=== PATIENT | male | born 1955 | race Caucasian/White ===

== ENCOUNTER 2020-08-27 08:30 | Outpatient (CLI) | payer BC, SELFPAY | END 2020-08-27 08:31 | disposition home or self-care (01) | LOC: ANHCOVIDVC 08:30 | PROVIDERS: PCP Internal Medicine | DX: Z23 Encounter for immunization (principal) | CPT/HCPCS: 0001A; 91300 ==

== ENCOUNTER 2020-09-17 08:32 | Outpatient (CLI) | payer BC, SELFPAY | END 2020-09-17 08:33 | disposition home or self-care (01) | LOC: ANHCOVIDVC 08:32 | PROVIDERS: PCP Internal Medicine | DX: Z23 Encounter for immunization (principal) | CPT/HCPCS: 0002A; 91300 ==

== ENCOUNTER 2021-01-07 10:01 | Emergency (ER) | payer BC, SELFPAY ==
[2021-01-07 10:13] VITALS: BP 156/85; PULSE 62; RESP 18; TEMP 36.7; O2SAT 99
--- NOTE | 2021-01-07 10:15 | ED.GENADULT ---
HPI - General Adult General Chief complaint: Skin/Abscess/Foreign Body Stated complaint: insect bite Time Seen by Provider: 01/07/21 10:15 Source: patient and RN notes reviewed Mode of arrival: ambulatory Limitations: no limitations History of Present Illness HPI narrative: 65-year-old male presents with complaints of red and itchy rash to back of left lower leg for the past 2 days. Getachew reports no change in area over the past 24 hours. Benadryl cream to area with little to no improvement. Believes he might have been bite by a spider on Thursday01/05/2021. Denies new detergent, personal hygiene products or laundry detergents. No new foods or medications. No swelling, burning, bleeding, or drainage. Denies fever, chills, headaches, weakness, fatigue, myalgia, facial swelling, or tongue swelling. Denies dyspnea or chest pain. Tolerating p.o. intake. Remains active. The patient reports he has not been diagnosed with COVID-19. The patient reports he received 2 Pfizer COVID-19 vaccines. The patient reports he is not waiting for the results of a COVID-19 lab test. The patient reports he does not have chills, weakness, or fatigue. The patient reports he does not have a new or worsening cough or shortness of breath. The patient reports he does not have any rhinorrhea, congestion, loss of taste or smell, sore throat, nausea, vomiting, abdominal pain, and diarrhea. Denies recent traveling. Denies concerns for COVID-19 or exposures. At this time, the patient is not suspected of having COVID-19. Some parts of this dictation were generated by voice recognition software and may contain typographical and/or grammatical inaccuracies. Related Data Home Medications Medication Instructions Recorded Confirmed bupropion HCl 300 mg 24 hr tablet, 300 mg PO QAM 05/30/19 01/07/21 extended release omeprazole 20 mg capsule,delayed 20 mg PO DAILY 05/30/19 01/07/21 release Allergies Allergy/AdvReac Type Severity Reaction Status Date / Time No Known Allergies Allergy Verified 01/07/21 10:05 Review of Systems Review of Systems: Narrative: CONSTITUTIONAL: Denies fever, chills, sweats. EYES: Denies visual changes, redness, discharge. ENT: Denies otalgia, rhinorrhea, congestion, sore throat. CARDIOVASCULAR: Denies chest pain, palpitations, edema. RESPIRATORY: Denies dyspnea, wheezing, cough. GASTROINTESTINAL: Denies abdominal pain, nausea, vomiting, diarrhea. GENITOURINARY: Denies dysuria, hematuria, abnormal discharge. SKIN: Complains of red and itching rash to back of LT lower leg. Denies drainage. MUSCULOSKELETAL: Denies acute back pain, joint pain, or myalgia. NEUROLOGIC: Denies numbness or focal weakness. PSYCHIATRIC: Denies anxiety or depression. All systems reviewed & are unremarkable except as noted in HPI and below. [facility] Past Medical History Medical History (Updated 01/14/21 @ 14:59 by TICO Manzano) Depression Essential (primary) hypertension Gastro-esophageal reflux disease without esophagitis Hx of malignant melanoma Pure hypercholesterolemia Schatzki's ring Surgical History Surgical History (Updated 01/07/21 @ 10:55 by TICO Manzano) History of esophagogastroduodenoscopy (EGD) History of surgical removal of lesion mole removal Family History Family History Mother Patient's mother is in good health Father Family history of malignant neoplasm Patient's father is Social History Social History (Updated 01/07/21 @ 10:56 by TICO Manzano) Smoking status: Never smoker Tobacco type: cigarettes Second hand tobacco smoke exposure: No Alcohol intake: current Substance use: never Substance use type: does not use Living arrangements: with family Occupation/Education: occupation Gender identity (if verbalized by the patient): Male Sexual Orientation (if Verbalized by the Patient
== END 2021-01-07 10:35 | disposition home or self-care (01) ==
PROVIDERS: Emergency Provider Nurse Practitioner Family; PCP Internal Medicine
DX: S80.862A Insect bite (nonvenomous), left lower leg, initial encounter (principal); W57.XXXA Bitten or stung by nonvenomous insect and other nonvenomous arthropods, initial encounter; F32.9 Major depressive disorder, single episode, unspecified; I10 Essential (primary) hypertension; K21.9 Gastro-esophageal reflux disease without esophagitis; E78.00 Pure hypercholesterolemia, unspecified; K22.2 Esophageal obstruction; Z85.820 Personal history of malignant melanoma of skin
CPT/HCPCS: 99213; G0463

== ENCOUNTER 2021-03-15 00:59 | Day surgery (SDC) | payer BC, SELFPAY ==
[2021-03-01 15:05] VITALS: BMI 26.4
[2021-03-15 09:21] VITALS: BP 139/87; PULSE 58; RESP 14; TEMP 36.1; O2SAT 100; BMI 23.6
--- NOTE | 2021-03-15 09:27 | WPDGICN ---
Assessment and Plan Assessment and plan (1) Encounter for screening colonoscopy: Code(s): Z12.11 - Encounter for screening for malignant neoplasm of colon Status: Acute Assessment and Plan: Screening colonoscopy for neoplasia screening is encouraged. Further recommendations will be given after colonoscopy. (2) GERD (gastroesophageal reflux disease): Code(s): K21.9 - Gastro-esophageal reflux disease without esophagitis Status: Acute Assessment and Plan: GE reflux stable on omeprazole 20mg p.o. daily. GI Consult Note Consult date/time: 03/15/21 09:27 HPI: Getachew Morales is a 65 year old male Presents for screening colonoscopy. Patient reports that his current weight appetite bowel movements are normal. Patient denies abdominal pain. He has had no bleeding. Family history is noncontributory. Patient gives a past history of acid reflux this is currently felt to be stable on current acid suppression medicines omeprazole 20mg p.o. daily he denies any dysphagia bleeding or weight loss. Review of Systems Review of Systems: All systems reviewed & are unremarkable except as noted in HPI and below PMFSH Past Medical History Medical History (Updated 03/15/21 @ 09:29 by Temo Garcia MD) Depression Essential (primary) hypertension Gastro-esophageal reflux disease without esophagitis Hx of malignant melanoma Pure hypercholesterolemia Schatzki's ring Surgical History Surgical History (Updated 01/07/21 @ 10:55 by TICO Manzano) History of esophagogastroduodenoscopy (EGD) History of surgical removal of lesion mole removal Family History Family History Mother Patient's mother is in good health Father Family history of malignant neoplasm Patient's father is Social History Social History (Updated 01/07/21 @ 10:56 by TICO Manzano) Smoking status: Never smoker Tobacco type: cigarettes Second hand tobacco smoke exposure: No Alcohol intake: current Substance use: never Substance use type: does not use Living arrangements: with family Gender identity (if verbalized by the patient): Male Sexual Orientation (if Verbalized by the Patient): Straight or Heterosexual Meds Home Medications and Allergies Home Medications Medication Instructions Recorded Confirmed Type bupropion HCl 300 mg 24 hr tablet, 300 mg PO QAM 05/30/19 03/15/21 History extended release omeprazole 20 mg capsule,delayed 20 mg PO DAILY 05/30/19 03/15/21 History release losartan 50 mg tablet 50 mg PO DAILY #90 tablet 12/14/20 03/15/21 Rx mupirocin 1 applic TOPICAL BID 5 Days #30 gm 01/07/21 03/15/21 Rx Allergies Allergy/AdvReac Type Severity Reaction Status Date / Time No Known Allergies Allergy Verified 03/15/21 09:21 Vital Signs Vital Signs - 24 hr 03/15/21 09:21 Temperature 96.9 F L Pulse Rate 58 L Respiratory Rate 14 Blood Pressure 139/87 Pulse Oximetry 100 Exam Narrative: Physical exam reveals patient to be alert. Vital signs stable. HEENT exam is unremarkable. Patient is anicteric. Lungs are clear to auscultation and percussion. Heart is without murmur or extra sounds. Abdominal exam bowel sounds present soft nontender with no organomegaly. Digital external rectal exam is normal.
[2021-03-15] MEDS: LACTATED RINGERS 1,000 ML 150 ML IV CONT (09:32)
--- NOTE | 2021-03-15 09:47 | WPDANESEPPF ---
Anes - Initial Pre Proc Eval Procedure: Operation Date: 03/15/21 10:00 Proposed Procedures p Screening Colonoscopy - Temo Garcia MD Date/Time: 03/15/21 09:47 Surgeon: Temo Garcia MD Pre Op Diagnosis: neoplasm screening Z12.11 Patient Data Age: 65 Gender: M Height: 1.85 m Weight: 81.3 kg Last Vital Signs Temp 96.9 F L 03/15/21 09:21 Pulse 58 L 03/15/21 09:21 Resp 14 03/15/21 09:21 BP 139/87 03/15/21 09:21 Pulse Ox 100 03/15/21 09:21 Allergies Allergy/AdvReac Type Severity Reaction Status Date / Time No Known Allergies Allergy Verified 03/15/21 09:21 Home Medications Medication Instructions Recorded Confirmed Type bupropion HCl 300 mg 24 hr tablet, 300 mg PO QAM 05/30/19 03/15/21 History extended release omeprazole 20 mg capsule,delayed 20 mg PO DAILY 05/30/19 03/15/21 History release losartan 50 mg tablet 50 mg PO DAILY #90 tablet 12/14/20 03/15/21 Rx mupirocin 1 applic TOPICAL BID 5 Days #30 gm 01/07/21 03/15/21 Rx Patient hx anesthesia problems: none Family hx anesthesia problems: none Results Review: All pre-operative results and documents have been reviewed as part of the pre-operative evaluation. [facility] Past Medical History Medical History (Updated 03/15/21 @ 09:29 by Temo Garcia MD) Depression Essential (primary) hypertension Gastro-esophageal reflux disease without esophagitis Hx of malignant melanoma Pure hypercholesterolemia Schatzki's ring Surgical History Surgical History (Updated 01/07/21 @ 10:55 by TICO Manzano) History of esophagogastroduodenoscopy (EGD) History of surgical removal of lesion mole removal Family History Family History Mother Patient's mother is in good health Father Family history of malignant neoplasm Patient's father is Social History Social History (Updated 01/07/21 @ 10:56 by TICO Manzano) Smoking status: Never smoker Tobacco type: cigarettes Second hand tobacco smoke exposure: No Alcohol intake: current Substance use: never Substance use type: does not use Living arrangements: with family Gender identity (if verbalized by the patient): Male Sexual Orientation (if Verbalized by the Patient): Straight or Heterosexual Anes - Eval Final PreProcedure Day of Procedure 03/15/21 09:47 Patient weight: overweight Heart: regular rate and rhythm Lungs: clear to auscultation Airway: Mallampati scale class II Neurological: alert and oriented Last oral intake: >/= 8 hours ASA classification: II Emergent: no Anesthetic plan: proceed Anesthesia type and monitoring: general GIVS and standard monitoring Results Review: All pre-operative results and documents have been reviewed as part of the pre-operative evaluation. Informed Consent: The patient's anesthetic plan and its attendant risks and benefits were discussed with the patient/family/POA. Questions were solicited and answers provided to the satisfaction of the patient/family/POA.
[2021-03-15 10:22] VITALS: BP 103/58; PULSE 58; RESP 13; O2SAT 99
[2021-03-15 10:32] VITALS: BP 125/70; PULSE 51; RESP 21; O2SAT 100
[2021-03-15 10:42] VITALS: BP 132/64; PULSE 53; RESP 14; O2SAT 100
== END 2021-03-15 10:56 | disposition home or self-care (01) ==
PROVIDERS: PCP Internal Medicine; Visit Provider Internal Medicine Gastroenterology
PROC: 0DJD8ZZ Inspection of Lower Intestinal Tract, Via Natural or Artificial Opening Endoscopic (ICD-10-PCS; CPT 45378; principal; 2021-03-15 10:00)
DX: Z12.11 Encounter for screening for malignant neoplasm of colon (principal); D12.2 Benign neoplasm of ascending colon; D12.5 Benign neoplasm of sigmoid colon; K63.5 Polyp of colon; K64.8 Other hemorrhoids; K57.30 Diverticulosis of large intestine without perforation or abscess without bleeding; K21.9 Gastro-esophageal reflux disease without esophagitis; I10 Essential (primary) hypertension; E78.00 Pure hypercholesterolemia, unspecified; F32.9 Major depressive disorder, single episode, unspecified; Z85.820 Personal history of malignant melanoma of skin
CPT/HCPCS: 45385; 88305; J2001; J2704; J7120

== ENCOUNTER 2023-01-02 11:46 | Emergency (ER) | payer BC, SELFPAY ==
[2023-01-02 11:53] VITALS: BP 156/85; PULSE 69; RESP 16; TEMP 36.7; O2SAT 96
--- NOTE | 2023-01-02 12:34 | ED.SKABFB ---
HPI - Skin/Abscess/Foreign Bdy General Chief complaint: Skin/Abscess/Foreign Body Stated complaint: Insect Bite Rt Side Time Seen by Provider: 01/02/23 12:25 Source: patient, family () and RN notes reviewed Mode of arrival: ambulatory Limitations: no limitations History of Present Illness HPI narrative: Patient presents today complaining of a tick bite to his right side that was noticed this morning and removed. He is unsure how long the tick has been in him as he states he has not been in the [place] or anywhere he believes he may have had contact. States he cannot narrow down a time frame in which he believes he may have gotten bit. He comes in today seeking prophylactic antibiotics. He denies any symptoms besides the tick bite itself. Related Data Home Medications Medication Instructions Recorded Confirmed bupropion HCl 300 mg 24 hr tablet, 300 mg PO QAM 05/30/19 01/02/23 extended release (Wellbutrin XL) omeprazole 20 mg capsule,delayed 20 mg PO DAILY 07/10/21 01/02/23 release Allergies Allergy/AdvReac Type Severity Reaction Status Date / Time No Known Allergies Allergy Verified 01/02/23 11:46 Review of Systems Review of Systems: CONSTITUTIONAL: Denies body aches, fever, chills, or sweats. EYES: Denies visual changes, redness, or discharge. ENT: Denies rhinorrhea, congestion, sore throat, or otalgia. CARDIOVASCULAR: Denies chest pain, palpitations, or edema. RESPIRATORY: Denies cough or dyspnea. GASTROINTESTINAL: Denies abdominal pain, nausea, vomiting, or diarrhea. GENITOURINARY: Denies dysuria or hematuria. SKIN: + tick bite MUSCULOSKELETAL: Denies back pain, joint pain, or myalgia. NEUROLOGIC: Denies headache, numbness, tingling, or weakness. PSYCH: Denies depression or anxiety. [facility] Past Medical History Medical History Depression Essential (primary) hypertension Gastro-esophageal reflux disease without esophagitis Hx of malignant melanoma Pure hypercholesterolemia Schatzki's ring Surgical History Surgical History History of esophagogastroduodenoscopy (EGD) History of surgical removal of lesion mole removal Family History Family History Mother Patient's mother is in good health Father Family history of malignant neoplasm Patient's father is Social History Social History Smoking status: Never smoker Tobacco type: cigarettes Second hand tobacco smoke exposure: No Alcohol intake: current Substance use: never Substance use type: does not use Lack of Transportation: No Lack of Food: Never True Current Housing: I Have Housing Concerned About Future Housing: No Difficulty Paying Gas/Electric Bills: No Difficulty Paying for Meds: No Currently Unemployed: No Education: Master's Degree or Higher Difficulty w/ Childcare or Family Care: No Living arrangements: with family Occupation/Education: occupation Gender identity (if verbalized by the patient): Male Sexual Orientation (if Verbalized by the Patient): Straight or Heterosexual Comments At time of signature, I have reviewed and agree with nursing past medical, surgical, social and family history unless otherwise noted. Please see nursing chart for further information. There is no relevant family history pertinent to the presenting complaint Exam Narrative: GENERAL: Well-appearing, well-nourished, and in no acute distress. HEAD: Normocephalic, atraumatic. EYES: EOMI. No redness or drainage. Conjunctivae normal. ENT: Mucous membranes pink and moist. NECK: Normal AROM. CHEST: No respiratory distress. EXTREMITIES: Normal range of motion. No edema. SKIN: Warm, dry, no rash. Capillary refill normal. Normal skin turgor. Approx
== END 2023-01-02 12:38 | disposition home or self-care (01) ==
PROVIDERS: Emergency Provider Nurse Practitioner; PCP Internal Medicine
DX: S30.861A Insect bite (nonvenomous) of abdominal wall, initial encounter (principal); W57.XXXA Bitten or stung by nonvenomous insect and other nonvenomous arthropods, initial encounter; I10 Essential (primary) hypertension; K21.9 Gastro-esophageal reflux disease without esophagitis; E78.00 Pure hypercholesterolemia, unspecified; Z85.820 Personal history of malignant melanoma of skin; F32.A Depression, unspecified
CPT/HCPCS: 99213; G0463

== ENCOUNTER → 2023-04-14 09:13 | Outpatient (CLI) | payer BC, SELFPAY ==
--- NOTE | ~2023-04-14 | US_ITS ---
EXAMINATION: US soft tissue UE LT DATE: 04/14/2023 09:39 INDICATION: Closed enlarged lymph nodes TECHNIQUE: Multiple grayscale and Doppler ultrasound images of the left subclavicular region were obt ained. COMPARISON: None FINDINGS: There is no abnormal mass or lymphadenopathy in the patient's area of concern in left supra clavicular region. IMPRESSION: 1. No abnormal mass or lymphadenopathy in the patient's area of concern in left supraclavicular regio n. Reviewed, dictated and finalized at location E. IMPRESSION: 1. No abnormal mass or lymphadenopathy in the patient's area of concern in left supraclavicular region.
== END ==
DX: R59.0 Localized enlarged lymph nodes (principal)
CPT/HCPCS: 76882

== ENCOUNTER 2023-08-14 09:43 | Outpatient (CLI) | payer BC, SELFPAY ==
--- NOTE | ~2023-08-14 | XR_ITS ---
Right Knee Technique: AP, lateral, and sunrise views were obtained. Clinical History: Pain Findings: No fracture or dislocation is seen. Osseous alignment is anatomic. Joint spaces are preserv ed without degenerative or erosive change. Soft tissues are unremarkable. No joint effusion is seen. Impression: Unremarkable right knee radiographs. Reviewed, dictated and finalized at location . [facility] [employer] Impression: Unremarkable right knee radiographs.
== END 2023-08-14 09:44 | disposition home or self-care (01) ==
LOC: ANHIMG 09:45
PROVIDERS: PCP Internal Medicine; Visit Provider Internal Medicine
DX: M25.561 Pain in right knee (principal)
CPT/HCPCS: 73562

== ENCOUNTER 2023-09-21 08:00 | Outpatient (RCR) | payer BC, SELFPAY ==
--- NOTE | 2023-08-25 09:01 | OPREHPOC ---
Outpatient Therapy Plan of Care This is a Multidisciplinary Plan of Care that may contain components documented by all disciplines (PT, OT, and ST.) PT Problem 1 PT Problem #1 Knowledge Deficit PT Goal 1 Goal *indep with HEP PT Problem 2 PT Problem #2 Pain PT Goal 1 Goal 1* pain rating of 2/10 at worst 2* pt report NOT taking advil 3* pt report walking tolerance of 1 & 1/2 miles before increase pain 4* self assessment with LE functional scale of 28% limitation in activity level PT Problem 3 PT Problem #3 Impaired Flexibility PT Goal 1 Goal increase flexibility of R hip/knee to decrease pull on joint and improve position of joint: 1* supine SLR/hamstring length of 55' 2* prone knee flexion 110' /ant hip-quad length PT Problem 4 PT Problem #4 Impaired Strength PT Goal 1 Goal increase strength of R hip/knee to improve stability to joint and increase activity level: 1* single leg standing 10 seconds with good stability 2* 2 minute walking test distance of 475' 3* pt perform 15 reps of mat strengthening exercises with 3# ankle wt
--- NOTE | 2023-08-25 09:01 | PTOPEVAL1 ---
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 Pain has decreased, but still limiting his activity with stairs and walking. LE functional scale self assessment rating of 41% limitation in activity level. He does not perform any leg exercises, but previously, liked to walk for fitness. With the evaluation: his R knee ROM is 0-120' with pain at both end ranges of motion; tightness over quad and hamstring muscle groups, with weakness of hip/knee; with the testing- ? meniscal tear VS strain of ligament. Skilled PT services are indicated for modalities to decrease pain, therapeutic exercises to increase hip and knee strength and improve flexibility with education for home exercises. Plan of Care Interventions Electrical Stimulation,Hot Pack/Cold Pack, Intermittent Compression,Manual Therapy,Neuro Re- education,Patient Education,Therapeutic Activities,
--- NOTE | 2023-09-21 08:45 | PTOPPROG ---
Assessment and note entered by Afshan Lopez, PT Progress Information Assessment Status Progress Diagnosis R knee pain Onset Mar 2023 Subjective Information have been doing the exercises; knee continues to hurt with walking and stairs--limits what he can do; want to know what is causing the pain in his knee; PAIN: range of 0-3/10; increase pain on stairs, walking few blocks decrease pain: take advil 2x/day, ice when step wrong, get sharp pain Assessment PT Clinical Summary Getachew has had 5 PT sessions. Compared to the initial evaluation: pain rating from 2-4/10 to 0-3/10; LE functional scale self rating from 41 to 46% limitation in activity level ; stairs and walking increase his pain; continues to take 2 advil/day for the pain; slight increase in strength of R hip and knee; single leg standing R is 4 seconds, unsteady and he reports unstable in knee 2 minute walking test distance from 410' to 375' and limps on R LE with walking; flexibility of R hamstring and anterior hip-quad have increased slightly; education for HEP. The goals were partially met. He is to follow up with dr. Chilel is to call if additional appointments are needed. Plan of Care Interventions Electrical Stimulation,Hot Pack/Cold Pack, Intermittent Compression,Manual Therapy,Neuro Re- education,Patient Education,Therapeutic Activities,Therapeutic Exercise,Ultrasound,Other Other Interventions taping PT Services Indicated Yes Treatment Frequency and 1-2x/wk for 4 weeks Duration These treatments will address the objective and functional deficits as defined above. The patient will be advanced safely and appropriately in order for the patient to progress towards his/her prior level of function. Additional exercises will be introduced and as well as a comprehensive home exercise program upon discharge, if needed, ?to ensure carryover of functional gains achieved in the clinic. This treatment plan has been reviewed and agreement upon by the patient.
--- NOTE | 2023-09-21 08:48 | PCPTNOTE ---
during today's reeval session, he did not want any modalities for knee pain. Stated stim did not help his pain and compression pump increased his pain after last session.
--- NOTE | 2023-10-27 14:00 | PTOPDC ---
Assessment and note entered by Afshan Lopez, PT Discharge Information Assessment Status Discharge - Pt Not Present Diagnosis R knee pain Onset Mar 2023 Assessment PT Clinical Summary Getachew has not returned for any further therapy since the progress report dated September 20. Refer to it for his status at the last appointment. Discharge PT services. Plan of Care PT Services Indicated No
== END 2023-10-27 14:25 | disposition home or self-care (01) ==
LOC: ANHPT 08:00
PROVIDERS: PCP Internal Medicine; Visit Provider Internal Medicine
DX: M25.561 Pain in right knee (principal)
CPT/HCPCS: 97014; 97016; 97110; 97140; 97161; 97530; G0283

== ENCOUNTER 2023-12-28 19:30 | Emergency (ER) | payer MEDICARE, SELFPAY ==
--- NOTE | ~2023-12-28 | XR_ITS ---
EXAMINATION: XR wrist RT min 3V DATE: 12/28/2023 19:46 INDICATION: Right wrist pain and swelling. Fall. TECHNIQUE: 3 views of right wrist were obtained. COMPARISON: None. FINDINGS: Bone alignment is normal. There is a bone fragment dorsal to the carpus. There is degenerat lorene cystic change in the lunate and distal ulna, consistent with ulnolunate impaction syndrome. There is mild osteoarthritis of first carpometacarpal joint. IMPRESSION: 1. Bone fragment dorsal to the carpus, likely an avulsion fracture of dorsal pole of triquetrum. Reviewed, dictated and finalized at location E. IMPRESSION: 1. Bone fragment dorsal to the carpus, likely an avulsion fracture of dorsal po le of triquetrum.
[2023-12-28 19:37] VITALS: BP 176/85; PULSE 68; RESP 18; TEMP 36.3; O2SAT 99
--- NOTE | 2023-12-28 19:48 | ED.UPPEXIN ---
HPI - Extremity Injury (Upper) General Chief Complaint: Extremity Injury, Upper Stated Complaint: Right Wrist injury Time Seen by Provider: 12/28/23 19:44 Source: patient and RN notes reviewed Mode of arrival: ambulatory Limitations: no limitations History of Present Illness HPI narrative: Patient presents today complaining of a right wrist injury. Around 1300 this afternoon patient tripped and fell on some concrete outside of a store onto outstretched hand. He is complaining of generalized right wrist pain. Denies numbness or tingling in the arm or hand. Currently rates his pain 5/10. He has applied ice and taken ibuprofen prior to arrival, but states he is unsure if this provided him any relief. Related Data Home Medications Medication Instructions Recorded Confirmed bupropion HCl 300 mg 24 hr tablet, 300 mg PO QAM 05/30/19 12/28/23 extended release (Wellbutrin XL) omeprazole 20 mg capsule,delayed 20 mg PO DAILY 07/10/21 12/28/23 release Allergies Allergy/AdvReac Type Severity Reaction Status Date / Time No Known Allergies Allergy Verified 12/28/23 19:31 Review of Systems Review of Systems: CONSTITUTIONAL: Denies body aches, fever, chills, or sweats. EYES: Denies visual changes, redness, or discharge. ENT: Denies rhinorrhea, congestion, sore throat, or otalgia. CARDIOVASCULAR: Denies chest pain, palpitations, or edema. RESPIRATORY: Denies cough or dyspnea. GASTROINTESTINAL: Denies abdominal pain, nausea, vomiting, or diarrhea. GENITOURINARY: Denies dysuria or hematuria. SKIN: Denies rash, itching, or wounds. MUSCULOSKELETAL: Denies back pain, or myalgia.+ right wrist pain NEUROLOGIC: Denies headache, numbness, tingling, or weakness. PSYCH: Denies depression or anxiety. FORMERLY [facility], [facility] Past Medical History Medical History COVID-19 Depression Essential (primary) hypertension Gastro-esophageal reflux disease without esophagitis Hx of malignant melanoma Pure hypercholesterolemia Schatzki's ring Surgical History Surgical History History of esophagogastroduodenoscopy (EGD) History of surgical removal of lesion mole removal Family History Family History Mother Patient's mother is in good health Father Family history of malignant neoplasm Patient's father is Social History Social History Smoking status: Never smoker Tobacco type: cigarettes Second hand tobacco smoke exposure: No Alcohol intake: current Substance use: never Substance use type: does not use Lack of Transportation: No Lack of Food: Never True Current Housing: I Have Housing Concerned About Future Housing: No Difficulty Paying Gas/Electric Bills: No Difficulty Paying for Meds: No Currently Unemployed: No Education: Master's Degree or Higher Difficulty w/ Childcare or Family Care: No Living arrangements: with family Occupation/Education: occupation Gender identity (if verbalized by the patient): Male Sexual Orientation (if Verbalized by the Patient): Straight or Heterosexual Comments At time of signature, I have reviewed and agree with nursing past medical, surgical, social and family history unless otherwise noted. Please see nursing chart for further information. There is no relevant family history pertinent to the presenting complaint Exam Narrative: GENERAL: Well-appearing, well-nourished, and in no acute distress. HEAD: Normocephalic, atraumatic. EYES: EOMI. No redness or drainage. Conjunctivae normal. ENT: Mucous membranes pink and moist. NECK: Normal AROM. CHEST: No respiratory distress. EXTREMITIES: Right wrist: Tenderness to the distal radius with generalized wrist edema. No tenderness to the distal ulna. Pain
== END 2023-12-28 20:14 | disposition home or self-care (01) ==
PROVIDERS: Emergency Provider Nurse Practitioner; PCP Internal Medicine
DX: S62.101A Fracture of unspecified carpal bone, right wrist, initial encounter for closed fracture (principal); W01.0XXA Fall on same level from slipping, tripping and stumbling without subsequent striking against object, initial encounter; I10 Essential (primary) hypertension; K21.9 Gastro-esophageal reflux disease without esophagitis; E78.00 Pure hypercholesterolemia, unspecified; F32.A Depression, unspecified; Z86.16 Personal history of COVID-19; Z85.820 Personal history of malignant melanoma of skin
CPT/HCPCS: 73110; 99214; G0463

== ENCOUNTER 2024-03-14 08:30 | Outpatient (RCR) | payer MEDICARE, SELFPAY ==
--- NOTE | 2024-02-29 10:45 | OTOPEVAL1 ---
Assessment and note entered by NIKHIL Vasquez/Olivia, CHT Evaluation Information Assessment Status Evaluation Diagnosis Fracture of unspecified carpal bone, right wrist Subjective Information Patient reports a fall on 12/28/23 where he injured his wrist. X-ray report: Bone fragment dorsal to the carpus, likely an avulsion fracture of dorsal pole of triquetrum. 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 He reports no paresthesia. 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 He also enjoys sailing and reports it's going well , hasn 't really felt limited with being able to do that. Reported Pain Level Pain Score 0: Self Report Additional Pain Score Comments No pain at rest. Patient reports his pain increases to 2/10 with active ROM of the wrist. Assessment OT Clinical Summary Patient referred to OT 2 months out from right wrist carpal bone avulsion fracture. He presents with excellent ROM, some residual stiffness into wrist extension. He also is experiencing some residual soreness. Issued ROM and putty HEP. He demonstrates excellent understanding. Patient to follow up in 2 weeks for reassessment and HEP progression. Plan of Care Interventions Therapeutic Exercise,Paraffin OT Services Indicated Yes Treatment Frequency and Follow up in 2 weeks for HEP progression and D/C Duration These treatments will address the objective and functional deficits as defined above. The patient will be advanced safely and appropriately in order for the patient to progress towards his/her prior level of function. Additional exercises will be introduced and as well as a comprehensive home exercise program upon discharge, if needed, ?to ensure carryover of functional gains achieved in the clinic. This treatment plan has been reviewed and agreement upon by the patient.
--- NOTE | 2024-02-29 10:45 | OPREHPOC ---
Outpatient Therapy Plan of Care This is a Multidisciplinary Plan of Care that may contain components documented by all disciplines (PT, OT, and ST.) OT Problem 1 OT Problem #1 Knowledge Deficit OT Goal 1 Goal / Goal Update 1. Patient to be indep with HEP Target Visit 2 OT Problem 2 OT Problem #2 Impaired Strength OT Goal 1 Goal / Goal Update 1. Patient to progress HEP to wrist ROM in all planes against gravity with 2 lb. free weight without pain 2. Patient to progress HEP to red putty without pain Target Visit 2
--- NOTE | 2024-03-14 09:48 | OTOPDC ---
Assessment and note entered by Kamaljit Richey, NIKHIL/Olivia, CHT OT Discharge Summary 03/14/24 Assessment Status Discharge Diagnosis Fracture of unspecified carpal bone, right wrist Subjective Information Patient reports intermittent compliance with the HEP. States overall he is making progress with the right hand. He reports he continues to have pain in the thumb side of the hand, grabbing at the 1st CMC. X-ray notes OA here. Functionally he reports no longer experiencing pain or difficulties with using a knife to cut food. His thumb continues to have pain when playing the piano. Reported Pain Level Pain Score 0: Self Report Assessment OT Clinical Summary Patient referred to OT 2+ months out from right wrist carpal bone avulsion fracture. Today his HEP was progressed to strengthening and he did well with this. His biggest complaint is what appears to be symptoms of thumb CMC OA. Issued ROM and thumb CMC stabilization HEP for this. He demonstrates excellent understanding of HEP and is ready for discharge. D/C OT with HEP. Plan of Care OT Services Indicated No
== END 2024-03-14 11:50 | disposition home or self-care (01) ==
LOC: ANHOT 08:30
PROVIDERS: PCP Internal Medicine; Visit Provider Orthopaedic Surgery
DX: S62.101A Fracture of unspecified carpal bone, right wrist, initial encounter for closed fracture (principal)
CPT/HCPCS: 97110; 97165

== ENCOUNTER 2024-12-27 02:40 | Day surgery (SDC) | payer MEDICARE, SELFPAY ==
[2024-12-20 13:33] VITALS: BMI 26.2
--- NOTE | 2024-12-20 13:40 | PC.NURSE ---
Report to the Outpatient Waiting Room, entrance under the green pavilion located off [facility], at time _11:00am on date _12/27/24 . Planned Procedure Time: __1:00pm .? Time changes happen often and if your time is changed the preop area will call you the afternoon before. - You and your visitor will be asked to self-screen and do not enter if you have any COVID symptoms. Please call surgeon if you need to reschedule. - A mask is optional within the hospital at this time. Patients may have clear liquids (water, carbonated beverages, clear teas, apple juice) until 3 hours prior to surgery with a maximum of 20 ounces. - No food from midnight until time of surgery and no smoking, or chewing tobacco (or any form of nicotine). No chewing gum, candy or mints. ( 10:00am) Take only the following medications with a SIP of water on the morning of surgery: Tylenol if needed DO NOT STOP ANY OF YOUR OTHER PRESCRIPTION MEDICATIONS PRIOR TO SURGERY EXCEPT THE FOLLOWING Hold all vitamins and supplements for [address] Han Medications to discontinue per physician ___NSAIDS, ALEVE OR ASA for [address] Han Date to take last dose____12/19/24 Please no make-up, nail turkish, hairspray, perfume, deodorant, or body powder the day of surgery.? No jewelry (including any body piercings) or valuables the day of surgery, leave them at home.? Please take a shower or bath the night before, or the morning of, surgery with an antibacterial soap.? Wear comfortable, loose fitting clothing.? Enema preop PREP per Dr Han. *Pt prefers to have Urine Culture done at Dr Campbell office on 12/22/24 when he there for office visit/testing on 12/22/24. LM on for Anna regarding this, she is to call me back if any questions or if cannot do it and will fax results once back for 12.27.24 surgery date. - Jewelry must be removed prior to entering the operating room.? Rings and piercings that are not removed may be cut off. - The hospital will not accept responsibility for valuables.? - Please leave all valuables, including medications, at home the day of surgery. If you are going home after surgery, a licensed independent driver must drive you home.? - NO public transportation without another adult if you receive anesthesia. - We recommend that an adult stay with you for 24 hours following discharge. - We also recommend that you do not drive, make important decision, drink alcoholic beverages, or take any drugs that were not prescribed by your health care provider for at least 24 hours after your discharge time. Follow any additional instructions given to you from your surgeon. Telephone instructions given to __Patient and asked if any additional questions and then verbalized understanding. Patient advised to call surgeon office or pre surgery nurse liaison [phone] if any additional questions.
--- OUTSIDE RECORDS SUMMARY | 2024-12-27 02:43 | XMS_ITS | Encounter Summary ---
Author Organization [facility] Address [address] [place] [address] Care Team Providers Care Disciplinary Hearing Officer Name Role Phone Mariusz Levy Primary Care Provider [phone] Encounter Details Date Type Department Care Team (Late st Contact Info) Description 12/01/2019 Lab Requisition [facility] DermPath Lab [address] [facility], [facility] [place] [place] [address] Ninfa Morales DO [address] [facility] [address] [place] [address] Social History Tobacco Use Types Packs/Day Years Used Date Smoking Tobacco: Never Smokeless Tobacco: Never Alcohol Use Standard Drinks/Week Comments Yes 0 (1 standard drink = 0.6 oz pur e alcohol) Sex and Gender Information Value Date Recorded Sex Assigned at Not on file 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 Gender Identity Not on file Sexual Orientation Not on file documented as of this encounter Plan of Treatment Not on file documented as of this encounter Procedures Procedure Name Priority Date/Time Associated Diagnosis Comments DERMATOPATHOLOGY Routine 11/30/2019 12:0 0 AM CDT documented in this encounter Results * DERMATOPATHOLOGY (11/30/2019 12:00 AM CDT) Case Report Dermatopathology Report Case: [id number] Authorizing Provider: Ninfa Morales DO Collected: 11/30/2019 12:00 AM Ordering Location: [facility] DermPath Lab Received: 12/01/2019 11:44 AM Pathologist: Sheila Mccloud MD Specimen: Skin, mid back 0 7:49 PM CDT DERMATOPATHOLOGY LABORATORY Final Diagnosis Specimen A. SKIN, mid back: DERMAL SCAR RESIDUAL MELANOCYTIC PROLIFERATION NOT IDENTIFIED (L90.5) 0 7:49 PM CDT DERMATOPATHOLOGY LABORATORY at 1949 CDT Clinical History R/O melanocytic proliferation biopsy proven. See prior biopsy [id number] 0 7:49 PM CDT DERMATOPATHOLOGY LABORATORY Gross Description Specimen A: Received is one formalin filled container labeled with the patient's name and designated mid back. The specimen consists of a non-oriented ellipse of skin measuring [id number] mm. The epidermal surface is unremarkable. The margin is inked green. The 12 o'clock and 6 o'clock tips are submitted in cassette 1. The remainder of the ellipse is serially sectioned and submitted in cassette 2-4. There is a fragmented piece of tissue measuring [id number] submitted in cassette 5. Jar 0. 0 7:49 PM CDT DERMATOPATHOLOGY LABORATORY Microscopic Description Specimen A. SKIN, mid back: There are fibroblasts and collagen bundles oriented parallel to the skin surface. There are elongated blood vessels, some of which are oriented perpendicular to the skin surface. No residual melanocytic proliferation is identified. 0 7:49 PM CDT DERMATOPATHOLOGY LABORATORY Disclaimer An external and internal positive and negative controls are appropriate for the histochemical, immunohistochemical and immunofluorescence stain(s) in this case (if any), except where stated explicitly. The performance characteristics of the stain(s) cited in this report were developed and its performance characteristic determined by the Dermatopathology Laboratory at [facility], directed by Dr. Sierra Meza. These tests need not be, and therefore are not, approved by the [place] Food and Drug Administration. The tests are used for clinical purposes. Billing Codes Specimen Charges Stain Charges 15166 1 0 7:49 PM CDT DERMATOPATHOLOGY LABORATORY Embedded Images 0 7:49 PM CDT DERMATOPATHOLOGY LABORATORY Pathology/Cytolog y TISSUE SPECIMEN FROM SKIN / Unknown 11/30/2019 12/01/2019 11:44 AM CDT us Ninfa Morales DO LAB - PATHOLOGY/CYTOLOGY ORDERABLES Final Result DERMATOPATHOLOGY LABORATORY [facility] - Department of Dermatology [facility] [address] [place] [address], [facility] [phone] documented in this encounter Visit Diagnoses Not on filedocumented in this encounter Care Teams Disciplinary Hearing Officer Relationship Specialty Start Date End Date Mariusz Levy DO [address] [place] [address] PCP - General 05/05/19 documented as of this encounter
--- OUTSIDE RECORDS SUMMARY | 2024-12-27 02:43 | XMS_ITS | Encounter Summary ---
Author Organization [facility] Address [address] [place] [address] Care Team Providers Care Solar Sales Estimator Name Role Phone Mariusz Lvey Primary Care Provider [phone] Encounter Details Date Type Department Care Team (Late st Contact Info) Description 08/12/2019 Lab Requisition [facility] DermPath Lab [address] [facility], [facility] [place] [address] Ninfa Morales DO [address] [facility] [address] [place] [address] Social History Tobacco Use Types Packs/Day Years Used Date Smoking Tobacco: Never Smokeless Tobacco: Never Alcohol Use Standard Drinks/Week Comments Yes 0 (1 standard drink = 0.6 oz pur e alcohol) Sex and Gender Information Value Date Recorded Sex Assigned at Not on file 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 Gender Identity Not on file Sexual Orientation Not on file documented as of this encounter Plan of Treatment Not on file documented as of this encounter Procedures Procedure Name Priority Date/Time Associated Diagnosis Comments DERMATOPATHOLOGY Routine 08/11/2019 12:0 0 AM RESEARCH PROFESSIONAL documented in this encounter Results * DERMATOPATHOLOGY (08/11/2019 12:00 AM RESEARCH PROFESSIONAL) Case Report Dermatopathology Report Case: [id number] Authorizing Provider: Ninfa Morales DO Collected: 08/11/2019 12:00 AM Ordering Location: [facility] DermPath Lab Received: 08/12/2019 11:26 AM Pathologist: Karen Lopez MD Specimens: A) - Skin, right medial lower leg B) - Skin, mid back 0 9:24 AM [facility] DERMATOPATHOLOGY LABORATORY Final Diagnosis Specimen A. SKIN, right medial lower leg: COMPOUND MELANOCYTIC PROLIFERATION, INFLAMED; PRESENT AT MARGIN (D48.5) (see microscopic description and comment) Specimen B. SKIN, mid back: COMPOUND MELANOCYTIC PROLIFERATION, INFLAMED; PRESENT AT MARGIN (D48.5) (see microscopic description and comment) 0 9:24 AM [facility] DERMATOPATHOLOGY LABORATORY at [address] [facility] Clinical History A-B: Nevus r/o atypia 0 9:24 AM [facility] DERMATOPATHOLOGY LABORATORY Gross Description Specimen A: Received is one formalin filled container labeled with the patient's name and designated right medial lower leg. The specimen consists of a shave biopsy measuring 9x5x1 mm. Jar 0. Specimen B: Received is one formalin filled container labeled with the patient's name and designated mid back. The specimen consists of a shave biopsy measuring 7x4x1 and 7x6x1 mm. Jar 0. 0 9:24 AM [facility] DERMATOPATHOLOGY LABORATORY Microscopic Description Specimen A. SKIN, right medial lower leg: Sections show a compound melanocytic proliferation. There is a lentiginous proliferation of melanocytes between irregular nests. Scattered melanocytes show evidence of upward migration within the epidermis. In the dermis there are irregular nests of melanocytes. This lesion is present at the margin of the specimen. There is a lymphohistiocytic infiltrate within the dermis. The melanocytes are highlighted by an immunostain for MART-1/Melan-A. COMMENT: Because this lesion is present at the margin of the specimen, symmetry and circumscription cannot be evaluated. Therefore, a complete but conservative re-excision is recommended to evaluate this lesion in its entirety. Specimen B. SKIN, mid back: Sections show a compound melanocytic proliferation. There is a lentiginous proliferation of melanocytes between irregular nests. Scattered melanocytes show evidence of upward migration within the epidermis. In the dermis there are irregular nests of melanocytes. This lesion is present at the margin of the specimen. There is a lymphohistiocytic infiltrate within the dermis. The melanocytes are highlighted by an immunostain for MART-1/Melan-A. COMMENT: Because this lesion is present at the margin of the specimen, symmetry and circumscription cannot be evaluated. Therefore, a complete but conservative re-excision is recommended to evaluate this lesion in its entirety. 0 9:24 AM [facility] DERMATOPATHOLOGY LABORATORY Disclaimer An external and internal positive and negative controls are appropriate for the histochemical, immunohistochemical and immunofluorescence stain(s) in this case (if any), except where stated explicitly. The performance characteristics of the stain(s) cited in this report were developed and its performance characteristic determined by the Dermatopathology Laboratory at [facility], directed by Dr. Sierra Meza. These tests need not be, and therefore are not, approved by the [place] Food and Drug Administration. The tests are used for clinical purposes. Billing Codes Specimen Charges Stain Charges 10120 23679 1 1 76231 20856 1 1 0 9:24 AM RESEARCH PROFESSIONAL DERMATOPATHOLOGY LABORATORY Embedded Images 0 9:24 AM RESEARCH PROFESSIONAL DERMATOPATHOLOGY LABORATORY Pathology/Cytology TISSUE SPECIMEN FROM SKIN / Unknown 08/11/2019 08/12/2019 11:26 AM RESEARCH PROFESSIONAL Miscellaneous samples (specimen) TISSUE SPECIMEN FROM SKIN / Unknown 08/11/2019 08/12/2019 11:26 AM RESEARCH PROFESSIONAL Ninfa Morales DO LAB - PATHOLOGY/CYTOLOGY ORDERABLES Final Result DERMATOPATHOLOGY LABORATORY [facility] - Department of Dermatology [address] [place] [address], 5th Floor Lab [address] [phone] documented in this encounter Visit Diagnoses Not on filedocumented in this encounter Care Teams Solar Sales Estimator Relationship Specialty Start Date End Date Mariusz Levy DO [address] [facility] [address] [address] PCP - General 05/05/19 documented as of this encounter
--- OUTSIDE RECORDS SUMMARY | 2024-12-27 02:43 | XMS_ITS | Clinical Summary ---
Author Organization [facility] Address [address] [place] [address] Care Team Providers Care Medical Record Librarian Name Role Phone Mariusz Levy Primary Care Provider [phone]- [phone] Source Comments [facility] [employer],non-owned Affiliates and Associated Physician Practices is amultiple site organization consisting of ambulatory clinics and hospital sitesin [place], [place], [place] and [place]. This disclosure is being madepursuant to the Care Everywhere program and may not contain all information available regarding this patient. Last updated 18.[facility] [employer] Allergies No known active allergies Medications * Be aware that medications may not be up to date on this document. Alwaysverify current medications with the patient. 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 Gender Identity Not on file Sexual Orientation Not on file Last Filed Vital Signs Vital Sign Reading Time Taken Comments Blood Pressure 163/97 06/23/2019 1:35 PM SERVICER COIN MACHINES Pulse 72 06/23/2019 1:35 PM SERVICER COIN MACHINES Temperature - - Respiratory Rate - - Oxygen Saturation 96% 06/23/2019 1:35 PM SERVICER COIN MACHINES Inhaled Oxygen Concentration - - Weight 90.7 kg (200 lb) 06/23/2019 1:35 PM SERVICER COIN MACHINES Height 185.4 cm (6' 1) 06/23/2019 1:35 PM SERVICER COIN MACHINES Body Mass Index 26.39 06/23/2019 1:35 PM SERVICER COIN MACHINES Plan of Treatment Health Maintenance Due Date Last Done Comments COLOGUARD (AGES 45-75) - COL ON CA SCREENING 1955 COLON MONITORING 1955 COLONOSCOPY - COLON CA SCREENING 1956 CT COLONOGRAPHY - COLON CA SCREENING 1955 Colorectal Cancer Screening 1955 FIT - COLON CA SCREENING 1955 FLEX SIG - COLON CA SCREENING 1955 LIPID TESTING 1955 HEPATITIS C SCREENING 10/28/1974 DTAP/TDAP/TD VACCINES (1 - Tdap) 11/02/1975 PNEUMOCOCCAL VACCINE 50+ (1 of 1 - PCV) 2006 ZOSTER VACCINE (1 of 2) 2006 SCREENING FOR DIABETES 06/23/2019 COVID-19 VACCINE (1 - 2023-2 5 season) 2024 DEPRESSION SCREENING 06/22/2024 INFLUENZA VACCINE (#1) 2025 Respiratory Syncytial Virus (RSV) Vaccine Pt: or over 60 yrs (1 - 1-dose 75+ series) 11/02/2031 HEPATITIS B VACCINE Aged Out No longe r eligible based on patient's age to complete this topic HIB VACCINE Aged Out No longer eligi ble based on patient's age to complete this topic HPV VACCINE Aged Out No longer eligi ble based on patient's age to complete this topic MENINGOCOCCAL (Group B) VACC INE SHARED DECISION-MAKING Aged Out No longer eligibl e based on patient's age to complete this topic MENINGOCOCCAL GROUPS A/C/Y/W VACCINE Aged Out No longer eligible b ased on patient's age to complete this topic Care Teams Medical Record Librarian Relationship Specialty Start Date End Date Mariusz Levy DO [address] [facility] [address] [place] [address] PCP - General 11/14/19
--- OUTSIDE RECORDS SUMMARY | 2024-12-27 02:43 | XMS_ITS | Encounter Summary ---
Author Organization [facility] Address [address] [place] [address] Care Team Providers Care Author'S Agent Name Role Phone Mariusz Levy Primary Care Provider Encounter Details Date Type Department Care Team (Late st Contact Info) Description 05/06/2019 Lab Requisition [facility] DermPath Lab [address] [facility] [place] [address] Ninfa Morales DO [address] 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 Gender Identity Not on file Sexual Orientation Not on file documented as of this encounter Plan of Treatment Not on file documented as of this encounter Procedures Procedure Name Priority Date/Time Associated Diagnosis Comments DERMATOPATHOLOGY Routine 05/05/2019 12:0 0 AM DIGITAL CONTENT MANAGER documented in this encounter Results * DERMATOPATHOLOGY (05/05/2019 12:00 AM DIGITAL CONTENT MANAGER) Case Report Dermatopathology Report Case: [id number] Authorizing Provider: Ninfa Morales DO Collected: 05/05/2019 12:00 AM Ordering Location: [facility] DermPath Lab Received: 05/06/2019 06:44 AM Pathologist: Karen Lopez MD Specimens: A) - Skin, right forehead B) - Skin, left forearm 10:15 AM [facility] DERMATOPATHOLOGY LABORATORY Final Diagnosis Specimen A. 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 SKIN, left forearm: LENTIGINOUS MELANOCYTIC NEVUS, COMPOUND TYPE, IRRITATED (COMPOUND MELANOCYTIC NEVUS WITH ARCHITECTURAL DISORDER) (D22.62) 10:15 AM [facility] DERMATOPATHOLOGY LABORATORY at [address] [facility] Clinical History A: Pigmented AK vs lentigo R/O LM. B: Nevus R/O MM. 10:15 AM [facility] DERMATOPATHOLOGY LABORATORY Gross Description Specimen A: Received is one formalin filled container labeled with the patient's name and designated right forehead. The specimen consists of a shave measuring 04m95o0ls. Jar 0. Specimen B: Received is one formalin filled container labeled with the patient's name and designated left forearm. The specimen consists of a shave measuring 7s8y7ms. Jar 0. 10:15 AM [facility] DERMATOPATHOLOGY LABORATORY Microscopic Description Specimen A. SKIN, right forehead: There is a proliferation of melanocytes distributed in an irregular pattern along the dermal-epidermal junction with single cells predominating. Extension down the follicular epithelium and focal areas of confluence are present. This melanocytic proliferation is highlighted on MART-1/Melan-A. This lesion is present at the margin of the specimen. Specimen B. SKIN, left forearm: This is a compound nevus. There is melanin pigment in the stratum corneum. There is architectural disorder characterized by a lentiginous proliferation of melanocytes between irregular nests of cells along the dermal-epidermal junction, highlighted by MART-1/Melan-A immunohistochemical staining. There is underlying fibroplasia of the papillary dermis. The intradermal component is bland appearance and matures with depth. There is a lymphohistiocytic infiltrate within the dermis. (Compound Giovanny's Nevus or Compound Dysplastic Nevus) 10:15 AM [facility] DERMATOPATHOLOGY LABORATORY Disclaimer An external and internal positive and negative controls are appropriate for the histochemical, immunohistochemical and immunofluorescence stain(s) in this case (if any), except where stated explicitly. The performance characteristics of the stain(s) cited in this report were developed and its performance characteristic determined by the Dermatopathology Laboratory at [facility], directed by Dr. Sierra Meza. These tests need not be, and therefore are not, approved by the [place] Food and Drug Administration. The tests are used for clinical purposes. Billing Codes Specimen Charges Stain Charges 03488 99416 1 1 43363 86280 1 1 9 10:15 AM DIGITAL CONTENT MANAGER DERMATOPATHOLOGY LABORATORY Embedded Images 9 10:15 AM DIGITAL CONTENT MANAGER DERMATOPATHOLOGY LABORATORY Pathology/Cytology TISSUE SPECIMEN FROM SKIN / Unknown 05/05/2019 05/06/2019 6:44 AM DIGITAL CONTENT MANAGER Miscellaneous samples (specimen) TISSUE SPECIMEN FROM SKIN / Unknown 05/05/2019 05/06/2019 6:44 AM DIGITAL CONTENT MANAGER Ninfa Morales DO LAB - PATHOLOGY/CYTOLOGY ORDERABLES Final Result DERMATOPATHOLOGY LABORATORY [facility] - Department of Dermatology [address] [place] [address] 5th Floor Lab [address] [phone] documented in this encounter Visit Diagnoses Not on filedocumented in this encounter Care Teams Author'S Agent Relationship Specialty Start Date End Date Mariusz Levy DO [address] [facility] [address] [facility] [address] [place] [address] PCP - General 05/05/19 documented as of this encounter
--- OUTSIDE RECORDS SUMMARY | 2024-12-27 02:43 | XMS_ITS | Encounter Summary ---
Author Organization [facility] Address [address] [place] [address] Care Team Providers Care Cardiac Care Unit Nurse Name Role Phone Mariusz Levy Primary Care Provider [phone]- [phone] Encounter Details Date Type Department Care Team (Late st Contact Info) Description 12/16/2019 Lab Requisition [facility] DermPath Lab [address] [facility] [place] [address] Ninfa Morales DO [address] [facility] [address] [place] [address] Social History Tobacco Use Types Packs/Day Years Used Date Smoking Tobacco: Never Smokeless Tobacco: Never Alcohol Use Standard Drinks/Week Comments Yes 0 (1 standard drink = 0.6 oz pur e alcohol) Sex and Gender Information Value Date Recorded Sex Assigned at Not on file 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 Gender Identity Not on file Sexual Orientation Not on file documented as of this encounter Plan of Treatment Not on file documented as of this encounter Procedures Procedure Name Priority Date/Time Associated Diagnosis Comments DERMATOPATHOLOGY Routine 12/15/2019 12:0 0 AM CDT documented in this encounter Results * DERMATOPATHOLOGY (12/15/2019 12:00 AM CDT) Case Report Dermatopathology Report Case: [id number] Authorizing Provider: Ninfa Morales DO Collected: 12/15/2019 12:00 AM Ordering Location: [facility] DermPath Lab Received: 12/16/2019 10:11 AM Pathologist: Karen Lopez MD Specimen: Skin, right medial lower leg 0 5:45 PM CDT DERMATOPATHOLOGY LABORATORY Final Diagnosis Specimen A. SKIN, right medial lower leg: DERMAL SCAR RESIDUAL MELANOCYTIC PROLIFERATION NOT IDENTIFIED (L90.5) 0 5:45 PM CDT DERMATOPATHOLOGY LABORATORY at 1745 CDT Clinical History R/O compound melanocytic proliferation, biopsy proven. See [id number] 0 5:45 PM CDT DERMATOPATHOLOGY LABORATORY Gross Description Specimen A: Received is one formalin filled container labeled with the patient's name and designated right medial lower leg.The specimen consists of an ellipse measuring [id number] mm and is oriented with the suture/notch at the 12 o'clock position not labeled on the requisition. The 12 to 6 o'clock margin is inked green. The 6 o'clock to 12 o'clock margin is inked black. The 12 o'clock tip is submitted in cassette 1. The 6 o'clock tip is submitted in cassette 2. The remainder of the ellipse is serially sectioned and submitted in cassettes 3-4. Jar 0. 0 5:45 PM CDT DERMATOPATHOLOGY LABORATORY Microscopic Description Specimen A. SKIN, right medial lower leg: There are fibroblasts and collagen bundles oriented parallel to the skin surface. There are elongated blood vessels, some of which are oriented perpendicular to the skin surface. No residual melanocytic proliferation is identified. 0 5:45 PM CDT DERMATOPATHOLOGY LABORATORY Disclaimer An external and internal positive and negative controls are appropriate for the histochemical, immunohistochemical and immunofluorescence stain(s) in this case (if any), except where stated explicitly. The performance characteristics of the stain(s) cited in this report were developed and its performance characteristic determined by the Dermatopathology Laboratory at [facility], directed by Dr. Sierra Meza. These tests need not be, and therefore are not, approved by the [place] Food and Drug Administration. The tests are used for clinical purposes. Billing Codes Specimen Charges Stain Charges 93466 1 0 5:45 PM CDT DERMATOPATHOLOGY LABORATORY Embedded Images 0 5:45 PM CDT DERMATOPATHOLOGY LABORATORY Pathology/Cytolog y TISSUE SPECIMEN FROM SKIN / Unknown 12/15/2019 12/16/2019 10:11 AM CDT us Ninfa Morales DO LAB - PATHOLOGY/CYTOLOGY ORDERABLES Final Result DERMATOPATHOLOGY LABORATORY [facility] - Department of Dermatology [facility]/[address] [phone] documented in this encounter Visit Diagnoses Not on filedocumented in this encounter Care Teams Cardiac Care Unit Nurse Relationship Specialty Start Date End Date Mariusz Levy DO [address] [facility] [address] [facility] [address] [place] [address] PCP - General 05/05/19 documented as of this encounter
[2024-12-27 10:55] VITALS: BP 138/76; PULSE 56; RESP 18; TEMP 36.4; O2SAT 96; BMI 25.2
[2024-12-27] MEDS: LACTATED RINGERS 1,000 ML 30 ML IV CONT (11:25)
--- NOTE | 2024-12-27 12:28 | PM.IMHP ---
H&P: HPI History of Present Illness Date/Time: 12/27/24 12:28 Chief Complaint: Elevated PSA Narrative: 69-year-old male with elevated PSA and abnormal MRI. Review of Systems Review of Systems: All systems reviewed & are unremarkable except as noted in HPI and below PMFSH Past Medical History Medical History COVID-19 Depression Hx of malignant melanoma Essential (primary) hypertension Gastro-esophageal reflux disease without esophagitis Pure hypercholesterolemia Schatzki's ring Surgical History Surgical History History of surgical removal of lesion mole removal History of esophagogastroduodenoscopy (EGD) Family History Family History Mother Patient's mother is in good health Father Family history of malignant neoplasm Patient's father is Social History Social History Smoking status: Never smoker Tobacco type: cigarettes Second hand tobacco smoke exposure: No Alcohol intake: current Drinks per week: 7 Substance use: never Substance use type: does not use Do You Feel Safe in your Home?: Yes Lack of Transportation: No Lack of Food: Never True Current Housing: I Have Housing Concerned About Future Housing: No Difficulty Paying Gas/Electric Bills: No Difficulty Paying for Meds: No Currently Unemployed: No Education: Master's Degree or Higher Difficulty w/ Childcare or Family Care: No Living arrangements: with family Additional living arrangements comments: Occupation/Education: occupation Gender identity (if verbalized by the patient): Male Sexual Orientation (if Verbalized by the Patient): Straight or Heterosexual Spiritual care concerns: No Meds Home Medications and Allergies Home Medications ?Medication ?Instructions ?Recorded ?Confirmed ?Type omeprazole 20 mg capsule,delayed 20 mg PO DAILY 07/10/21 12/27/24 History release losartan 100 mg tablet 100 mg PO DAILY #90 tabs 01/18/24 12/27/24 Rx acetaminophen 325 mg tablet (Pain 325 mg PO Q6H PRN pain 12/20/24 12/20/24 History Relief (acetaminophen)) csythgcxvrq-vnk-ftuwcajub-hrb 2 tablet PO DAILY 12/20/24 12/27/24 History 149-hyalur 500 mg-500 mg-66.7 mg tablet (Rdrmjpnnvpo-Rfzugyuojdp-NFR (with antiox)) niacin 500 mg tablet 500 mg PO DAILY 12/20/24 12/27/24 History Allergies Allergy/AdvReac Type Severity Reaction Status Date / Time No Known Allergies Allergy Verified 12/27/24 11:33 Vital Signs Vital Signs - 24 hr 12/27/24 10:55 Temperature 36.4 C L Pulse Rate 56 L Respiratory Rate 18 Blood Pressure 138/76 Pulse Oximetry 96 Oxygen Delivery Room Air Exam Const: General: cooperative and comfortable Resp: Effort & Inspection: normal respiratory effort Cardio: Rate: regular rate Rhythm: regular rhythm Assessment and Plan Assessment and plan (1) Elevated PSA: Code(s): R97.20 - Elevated prostate specific antigen [PSA] Status: Acute Assessment and Plan: Proceed with uronav us and prostate biopsy
--- NOTE | 2024-12-27 12:30 | S_PTH ---
PATIENT: Getachew Morales LOC: [facility] U#:[id number] AGE/SX: 69/M ROOM: RE12/27/[address]: Kingsley Han, : 1955 BED: DIS: 12/27/2024 SPEC #: [id number] RECD: 12/27/24 14:12 STATUS: KAVITHA REStephanie #: [id number] NORRIS: 12/27/24 12:[address]: Guille,Kingsley Xavier DEPT: [facility] Surgical RECD BY: Huma Morrissey ENTERED: 12/27/24 14:15 SP TYPE: Surgical OTHR DR: Ronen Coleman, Tissues: A - Prostate Bx B - Prostate Bx C - Prostate Bx D - Prostate Bx E - Prostate Bx F - Prostate Bx G - Prostate Bx H - Prostate Bx I - Prostate Bx J - Prostate Bx K - Prostate Bx L - Prostate Bx M - Prostate Bx N - Prostate Bx O - Prostate Bx Procedures: Unstained Slides Hematoxylin and Eosin Stain Prostate Biopsy
--- NOTE | 2024-12-27 12:35 | WPDHPUPDATE1 ---
History and Physical Update Update Date/Time: 12/27/24 12:35 History and Physical has been reviewed, including an updated exam of the patient. There are NO changes in the patient's condition. Risks, benefits, and alternatives have been discussed and questions answered. Patient agrees to proceed with procedure.
--- NOTE | 2024-12-27 12:39 | WPDANESEPPF ---
Anes - Initial Pre Proc Eval Procedure: Operation Date: 12/27/24 13:00 Proposed Procedures p Trans Rectal Ultrasound Fusion Guided Prostate Biopsy - Kingsley Han MD Date/Time: 12/27/24 12:39 Surgeon: Kingsley Han MD Pre Op Diagnosis: Elev PSA Patient Data Age: 69 Gender: M Height: 1.85 m Weight: 86.9 kg Last Vital Signs Temp 36.4 C L 12/27/24 10:55 Pulse 56 L 12/27/24 10:55 Resp 18 12/27/24 10:55 BP 138/76 12/27/24 10:55 Pulse Ox 96 12/27/24 10:55 O2 Del Method Room Air 12/27/24 10:55 Allergies Allergy/AdvReac Type Severity Reaction Status Date / Time No Known Allergies Allergy Verified 12/27/24 11:33 Home Medications ?Medication ?Instructions ?Recorded ?Confirmed ?Type omeprazole 20 mg capsule,delayed 20 mg PO DAILY 07/10/21 12/27/24 History release losartan 100 mg tablet 100 mg PO DAILY #90 tabs 01/18/24 12/27/24 Rx acetaminophen 325 mg tablet (Pain 325 mg PO Q6H PRN pain 12/20/24 12/20/24 History Relief (acetaminophen)) ednkmxmsdss-dvc-eamrqrgcu-hrb 2 tablet PO DAILY 12/20/24 12/27/24 History 149-hyalur 500 mg-500 mg-66.7 mg tablet (Kqwboywuyvz-Pejkgtlcmfu-ZPS (with antiox)) niacin 500 mg tablet 500 mg PO DAILY 12/20/24 12/27/24 History Patient hx anesthesia problems: none Family hx anesthesia problems: none Results Review: All pre-operative results and documents have been reviewed as part of the pre-operative evaluation. [facility] Past Medical History Medical History COVID-19 Depression Hx of malignant melanoma Essential (primary) hypertension Gastro-esophageal reflux disease without esophagitis Pure hypercholesterolemia Schatzki's ring Surgical History Surgical History History of surgical removal of lesion mole removal History of esophagogastroduodenoscopy (EGD) Family History Family History Mother Patient's mother is in good health Father Family history of malignant neoplasm Patient's father is Social History Social History Smoking status: Never smoker Tobacco type: cigarettes Second hand tobacco smoke exposure: No Alcohol intake: current Drinks per week: 7 Substance use: never Substance use type: does not use Do You Feel Safe in your Home?: Yes Lack of Transportation: No Lack of Food: Never True Current Housing: I Have Housing Concerned About Future Housing: No Difficulty Paying Gas/Electric Bills: No Difficulty Paying for Meds: No Currently Unemployed: No Education: Master's Degree or Higher Difficulty w/ Childcare or Family Care: No Living arrangements: with family Additional living arrangements comments: Occupation/Education: occupation Gender identity (if verbalized by the patient): Male Sexual Orientation (if Verbalized by the Patient): Straight or Heterosexual Spiritual care concerns: No Anes - Eval Final PreProcedure Day of Procedure 12/27/24 12:39 Patient weight: normal Heart: regular rate and rhythm Lungs: clear to auscultation Airway: Mallampati scale class II Neurological: alert and oriented Last oral intake: >/= 8 hours ASA classification: II Emergent: no Anesthetic plan: proceed Anesthesia type and monitoring: general GIVS and standard monitoring Results Review: All pre-operative results and documents have been reviewed as part of the pre-operative evaluation. Informed Consent: The patient's anesthetic plan and its attendant risks and benefits were discussed with the patient/family/POA. Questions were solicited and answers provided to the satisfaction of the patient/family/POA.
[2024-12-27] MEDS: ceFAZolin 2 GM/D5W 50 ML 2 GM/50 ML BAG IVPB (12:57)
--- NOTE | 2024-12-27 13:18 | W.PM.PROC2 ---
Procedure Note - Detailed Date of Procedure 12/27/24 Pre-op Diagnosis Elev PSA Post-op Diagnosis Same Procedure Performed Uronav us and prostate biopsy Surgeon Kingsley Han MD Anesthesia General Description of Procedure Patient was taken to the operative suite correctly identified. Once anesthesia was obtained was in the lateral decubitus position. Transrectal ultrasound probe was placed. The MRI image was fused to the ultrasound. He had 3 regions of interest. Three cores were taken from each region. A standard 12 core was then taken. Tolerated procedure well without any complications and taken recovery stable condition. He is to call for path results in 1 week Estimated Blood Loss 10 Drains No Packing No Pathology Yes Complications No immediate complications Condition Stable Disposition PACU
[2024-12-27 13:23] VITALS: BP 112/63; PULSE 55; RESP 12; O2SAT 97
[2024-12-27 13:53] VITALS: BP 130/81; PULSE 55
[2024-12-27 14:20] VITALS: BP 144/75; PULSE 45
== END 2024-12-27 14:25 | disposition home or self-care (01) ==
PROVIDERS: PCP Internal Medicine; Visit Provider Urology
PROC: (CPT 55700; principal; 2024-12-27 13:00)
DX: N42.89 Other specified disorders of prostate (principal); R97.20 Elevated prostate specific antigen [PSA]; F32.A Depression, unspecified; I10 Essential (primary) hypertension; K21.9 Gastro-esophageal reflux disease without esophagitis; E78.00 Pure hypercholesterolemia, unspecified; Z98.890 Other specified postprocedural states; Z85.820 Personal history of malignant melanoma of skin; Z87.19 Personal history of other diseases of the digestive system; Z80.9 Family history of malignant neoplasm, unspecified
CPT/HCPCS: 76872; 55700; G0416; J0690; J2003; J2250; J2704; J3010; J7120